=== PATIENT | male | born 1950 | race Caucasian/White ===

== ENCOUNTER 2019-06-08 08:02 | Day surgery (SDC) | payer MEDICARE, MEDICAID ==
[~2019-06-08 08:02] MED LIST: Lactated Ringers 1,000 ML IV SCH; Sodium Chloride 0.9% 10 ML Syringe FLUSH PRN
[2019-06-08] MEDS ORDERED: Propofol 200 MG/20 ML SDV ONE ×2 (08:33→09:00)
[2019-06-08] MEDS ORDERED: Midazolam 1 MG/ML 2 ML SDV ONE ×2 (08:33→09:00)
--- NOTE | 2019-06-08 08:59 | PCM.PN ---
- General Info Date of Service: 06/08/19 - Review of Systems Systems Review Comment:: 69-year-old male referred for surveillance colonoscopy. He has a history of colon polyps. His last colonoscopy was about 5 years ago. He denies any recent change in bowel pattern. His recent history and physical is reviewed and no significant changes are noted. He is medically stable to proceed today. I discussed the proposed colonoscopy with the patient. Risks such as but not limited to bleeding and GI injury reviewed. He agrees to proceed. - Patient Data Vitals - Most Recent: Last Vital Signs Temp 97.1 F 06/08/19 08:30 Pulse 58 L 06/08/19 08:30 Resp 18 06/08/19 08:30 BP 158/97 H 06/08/19 08:30 Pulse Ox 100 06/08/19 08:30 Weight - Most Recent: 89.811 kg Med Orders - Current: Current Medications Lactated Ringer's (Ringers, Lactated) 1,000 mls @ 125 mls/hr IV ASDIRECTED PRASAD Last Admin: 06/08/19 08:54 Dose: 125 mls/hr Sodium Chloride (Saline Flush) 10 ml FLUSH ASDIRECTED PRN PRN Reason: Keep Vein Open Sepsis Event Note - Focused Exam Vital Signs: Vital Signs Temp Pulse Resp BP Pulse Ox 06/08/19 08:30 97.1 F 58 L 18 158/97 H 100 Date Exam was Performed: 06/08/19 Time Exam was Performed: 08:58 - Problem List Review Problem List Initiated/Reviewed/Updated: Yes - My Orders Last 24 Hours: My Active Orders 06/08/19 08:00 Patient Status [ADT] Routine Peripheral IV Care [RC] . DIRECTED Verify Patient Consent Obtain [RC] ASDIRECTED Lactated Ringers [Ringers, Lactated] 1,000 ml IV ASDIRECTED Sodium Chloride 0.9% [Saline Flush] 10 ml FLUSH ASDIRECTED PRN Peripheral IV Insertion Adult [OM.PC] Routine - Assessment Assessment:: history of colon polyps - Plan Plan:: Colonoscopy
--- NOTE | 2019-06-08 09:30 | PCM.OPNOTE ---
- General Post-Op/Procedure Note Date of Surgery/Procedure: 06/08/19 Operative Procedure(s): colonoscopy Findings: moderate sigmoid diverticulosis Pre Op Diagnosis: history of colon polyps Post-Op Diagnosis: sigmoid diverticulosis Anesthesia Technique: MAC Primary Surgeon: Yunier Diaz Pathology: none EBL in mLs: 0 Complications: None Condition: Good
--- NOTE | 2019-06-08 11:17 | OR ---
Date of Procedure: 06/08/2019 PREOPERATIVE DIAGNOSIS: History of colon polyps. POSTOPERATIVE DIAGNOSIS: Sigmoid diverticulosis. OPERATIONS PERFORMED: Colonoscopy. INDICATIONS FOR SURGERY: This 69-year-old male has a known history of colon polyps. He comes today for surveillance colonoscopy. FINDINGS: No polyps were seen on today's exam. The patient does have a moderate degree of sigmoid diverticulosis. This does not appear to be acutely inflamed, or otherwise, complicated. PROCEDURE IN DETAIL: The patient was taken to the operating room. He was given intravenous sedation, and with him in the left lateral decubitus position, digital rectal exam was performed showing no rectal masses. The Olympus colonoscope was inserted into the rectum. Retroflexed examination of the rectal canal was performed. The scope was then carefully advanced under direct visualization through the entire length of the colon until the cecum was reached. Cecal acquisition was confirmed by noting the normal internal cecal anatomy including the appendiceal orifice and ileocecal valve. The light was also noted to transilluminate the abdominal wall in the right lower quadrant. The ileocecal valve was cannulated and the terminal ileum examined. This appeared normal. The scope was slowly withdrawn sequentially re-examining the colonic segments until the entire colon and rectum had been fully examined. The scope was removed, and the patient was taken from the operating room in satisfactory condition. ESTIMATED BLOOD LOSS: 0. COMPLICATIONS: None. PROGNOSIS: Good. ZORAN Diaz MD /[id number]
== END 2019-06-08 10:49 | disposition home or self-care (01) ==
LOC: LL.SDS 08:02
PROVIDERS: ATTEND Surgery
DX: Z12.11 Encounter for screening for malignant neoplasm of colon (principal); K57.30 Diverticulosis of large intestine without perforation or abscess without bleeding; M15.9 Polyosteoarthritis, unspecified; H60.63 Unspecified chronic otitis externa, bilateral; I10 Essential (primary) hypertension; E78.2 Mixed hyperlipidemia; K21.9 Gastro-esophageal reflux disease without esophagitis; F17.200 Nicotine dependence, unspecified, uncomplicated; Z86.010 Personal history of colon polyps; Z79.899 Other long term (current) drug therapy; Z98.890 Other specified postprocedural states
CPT/HCPCS: 00812; G0105; J2250; J2704; J7120